=== PATIENT | female | born 1995 | race Caucasian/White ===

== ENCOUNTER 2023-01-14 06:35 | Observation (INO) | payer MEDICAID ==
[~2023-01-14] VITALS: Ht 152.4 cm; Wt 68.5 kg
== END 2023-01-14 10:00 | disposition home or self-care (01) ==
LOC: 8 EST LDRP 06:35
PROVIDERS: ADMIT Obstetrics & Gynecology; ATTEND Obstetrics & Gynecology
DX: O62.9 Abnormality of forces of labor, unspecified (principal); O26.893 Other specified pregnancy related conditions, third trimester; R10.9 Unspecified abdominal pain; Z3A.39 39 weeks gestation of pregnancy
CPT/HCPCS: 59025; 76818; 76805; G0378 ×2; 99281; G0379

== ENCOUNTER 2023-01-15 12:11 | Inpatient (IN) | payer MEDICAID ==
[~2023-01-15] VITALS: Ht 154.9 cm; Wt 62.6 kg
[~2023-01-15 12:11] MED LIST: EPHEDRINE SULFATE 50MG/ML VIAL ONE; LIDOCAINE 2%/EPINEPHRINE 1:200,000 20 ML VIAL INJ ONE
[2023-01-15] MEDS ORDERED: LACTATED RINGERS 1,000 ML IV SCH (13:45)
[2023-01-15] MEDS ORDERED: LIDOCAINE HCL 1% 20ML VIAL (Pyxis) INJ INFIL SCH (13:45)
[2023-01-15] MEDS ORDERED: CARBOPROST TROMETHAMINE 250 MCG/ML AMPUL IM PRN (13:45)
[2023-01-15] MEDS ORDERED: METHYLERGONOVINE MALEATE 0.2 MG/ML IM PRN (13:45)
[2023-01-15] MEDS: OXYTOCIN 30 UNITS/500ML NS PMX 500 ML IV SCH (14:50)
[2023-01-15 15:25] LABS: CLARITY URINE CLEAR (CLEAR); COLOR URINE DARK YELLOW (YELLOW); KETONES URINE 2+ (NEGATIVE); LEUKOCYTE ESTERASE URINE TRACE (NEGATIVE); NITRITE URINE NEGATIVE (NEGATIVE); OCCULT BLOOD URINE NEGATIVE (NEGATIVE); PH URINE 6.5 (4.5-8.0); PROTEIN URINE TRACE (NEGATIVE); SPECIFIC GRAVITY URINE 1.023 (1.005-1.030)
[2023-01-15 15:37] LABS: *AMPHETAMINES SCREEN URINE NEGATIVE (NEGATIVE); *BARBITURATES SCREEN URINE NEGATIVE (NEGATIVE); *BENZODIAZEPINES SCREEN URINE NEGATIVE (NEGATIVE); *COCAINE SCREEN URINE NEGATIVE (NEGATIVE); CANNABINOID URINE SCREEN NEGATIVE (NEGATIVE); METHADONE URINE SCREEN NEGATIVE (NEGATIVE); OPIATES URINE SCREEN NEGATIVE (NEGATIVE); PHENCYCLIDINE URINE SCREEN NEGATIVE (NEGATIVE)
[2023-01-15 16:02] LABS: HEPATITIS B SURFACE ANTIGEN NEGATIVE
[2023-01-15] MEDS: LACTATED RINGERS 1,000 ML IV SCH ×3 (20:50→22:53)
[2023-01-15] MEDS ORDERED: ROPIVACAINE HCL/PF EPIDURAL 200 ML EPI ONE (21:53)
[2023-01-15] MEDS ORDERED: ROPIVACAINE HCL/PF EPIDURAL 200 ML EPI SCH (22:00)
[2023-01-15 22:16] LABS: BASOPHILS % 0.3 % (0.0-2.0); HEMATOCRIT. 35.5 % (36.0-48.0); HEMOGLOBIN. 12.2 g/dL (12.0-16.0); LYMPHOCYTES % 8.6 % (20.0-50.0); MEAN CORPUSCULAR HEMOGLOBIN 30.3 pg (28.0-32.0); MEAN CORPUSCULAR VOLUME 88.1 fL (81.0-99.0); MEAN PLATELET VOLUME 8.3 fl (7.4-10.4); MONOCYTES % 4.2 % (2.0-8.0); NEUTROPHILS % 86.9 % (40.0-76.0); PLATELET 207 x1000/uL (130-400); RED BLOOD CELL COUNT 4.03 mill/uL (4.2-5.4); RED CELL DISTRIBUTION WIDTH 12.3 % (11.6-14.6)
[2023-01-15 22:29] LABS: INR 0.9; PARTIAL THROMBOPLASTIN TIME 26.7 sec (23.4-31.0); PROTHROMBIN TIME 10.1 sec (9.6-11.0)
[2023-01-16] MEDS ORDERED: METHYLERGONOVINE MALEATE 0.2 MG/ML IM PRN (07:00)
[2023-01-16] MEDS ORDERED: OXYTOCIN 30 UNITS/500ML NS PMX 500 ML IV SCH (07:00)
[2023-01-16] MEDS ORDERED: GLYCERIN/WITCH HAZEL LEAF MEDICATED PAD TOP PRN (07:00)
[2023-01-16] MEDS ORDERED: LANOLIN OINT 7GM TUBE TOP PRN (07:00)
[2023-01-16] MEDS ORDERED: DIPHENHYDRAMINE 25MG CAPSULE PO PRN (07:00)
[2023-01-16] MEDS ORDERED: RHO(D) IMMUNE GLOBULIN 300 MCG/SYR IM PRN (07:00)
[2023-01-16] MEDS ORDERED: HEMORRHOIDAL SUPP PR PRN (07:00)
[2023-01-16] MEDS ORDERED: IBUPROFEN 400MG TABLET PO PRN (07:00)
[2023-01-16] MEDS ORDERED: BENZOCAINE/LANOLIN/ALOE VERA SPRAY TOP PRN (07:00)
[2023-01-16] MEDS ORDERED: ACETAMINOPHEN WITH CODEINE 300/30MG TABLET PO PRN (07:00)
[2023-01-16] MEDS: OXYTOCIN 30 UNITS/500ML NS PMX 500 ML IV SCH (07:07)
[2023-01-16 09:15] VITALS: BP 93/50; PULSE 79; RESP 18; TEMP 98.8; O2SAT 100
[2023-01-16] MEDS: PRENATAL VIT/FE FUMARATE/FA TABLET PO SCH (10:02)
[2023-01-16] MEDS: MAGNESIUM/ALUMINUM HYDROXIDE/SIMETHICONE 30ML UDC PO SCH ×3 (10:02→21:12)
[2023-01-16] MEDS: IBUPROFEN 800MG TABLET PO PRN (10:03)
[2023-01-16 10:20] VITALS: BP 94/47; PULSE 89; RESP 18; TEMP 97.9
[2023-01-16 14:00] VITALS: BP 104/49; PULSE 76; RESP 18; TEMP 98.5
[2023-01-16 16:00] VITALS: BP 117/70; PULSE 82; RESP 18; TEMP 98
[2023-01-16 19:30] VITALS: BP 101/65; PULSE 84; RESP 20; TEMP 98; O2SAT 96
[2023-01-16] MEDS: DOCUSATE SODIUM 100MG CAPSULE PO SCH (21:12)
[2023-01-17 04:00] VITALS: BP 100/58; PULSE 72; RESP 18; TEMP 98
[2023-01-17 06:31] LABS: BASOPHILS % 0.4 % (0.0-2.0); EOSINOPHILS % 1.8 % (0.0-5.0); HEMATOCRIT. 31.9 % (36.0-48.0); HEMOGLOBIN. 11.3 g/dL (12.0-16.0); LYMPHOCYTES % 22.2 % (20.0-50.0); MEAN CORPUSCULAR HEMOGLOBIN 31.2 pg (28.0-32.0); MEAN PLATELET VOLUME 8.3 fl (7.4-10.4); MONOCYTES % 7.2 % (2.0-8.0); NEUTROPHILS % 68.4 % (40.0-76.0); PLATELET 176 x1000/uL (130-400); RED BLOOD CELL COUNT 3.63 mill/uL (4.2-5.4); RED CELL DISTRIBUTION WIDTH 12.4 % (11.6-14.6)
[2023-01-17] MEDS ORDERED: FERROUS SULFATE 325MG TABLET PO SCH (07:30)
[2023-01-17 07:40] VITALS: BP 98/56; PULSE 68; RESP 18; TEMP 98.2; O2SAT 97
[2023-01-17] MEDS: MAGNESIUM/ALUMINUM HYDROXIDE/SIMETHICONE 30ML UDC PO SCH ×2 (08:19→20:36)
[2023-01-17] MEDS: IBUPROFEN 800MG TABLET PO PRN (08:19)
[2023-01-17] MEDS: PRENATAL VIT/FE FUMARATE/FA TABLET PO SCH (08:19)
[2023-01-17 16:30] VITALS: BP 98/62; PULSE 66; RESP 18; TEMP 98.2
[2023-01-17 19:30] VITALS: BP 118/66; PULSE 70; RESP 20; TEMP 97.7; O2SAT 97
[2023-01-17] MEDS: DOCUSATE SODIUM 100MG CAPSULE PO SCH (20:36)
[2023-01-18 04:00] VITALS: BP 108/49; PULSE 61; RESP 18; TEMP 98.1
[2023-01-18] MEDS ORDERED: IBUP-2030 PO (06:40)
[2023-01-18 08:00] VITALS: BP 98/50; PULSE 64; RESP 18; TEMP 98.6; O2SAT 100
== END 2023-01-18 11:35 | disposition home or self-care (01) | DRG 560 ==
LOC: 8 EST LDRP 12:11 → OBSVTOIN 12:11 → 8EST 01-16 09:49
PROVIDERS: ADMIT Obstetrics & Gynecology; ATTEND Obstetrics & Gynecology
PROC: 10E0XZZ Delivery of Products of Conception, External Approach (ICD-10-PCS; principal; 2023-01-15)
PROC: 0KQM0ZZ Repair Perineum Muscle, Open Approach (ICD-10-PCS; 2023-01-15)
PROC: 3E0R3BZ Introduction of Anesthetic Agent into Spinal Canal, Percutaneous Approach (ICD-10-PCS; 2023-01-15)
PROC: 00HU33Z Insertion of Infusion Device into Spinal Canal, Percutaneous Approach (ICD-10-PCS; 2023-01-15)
DX: O99.02 Anemia complicating childbirth (principal); Z37.0 Single live birth; D62 Acute posthemorrhagic anemia; O70.1 Second degree perineal laceration during delivery; Z3A.39 39 weeks gestation of pregnancy; Z20.822 Contact with and (suspected) exposure to COVID-19
CPT/HCPCS: 36415; 80305; 81003; 85025; 86592; 86703; 86762; 86850; 86900; 87340; 87426; G0378; J2795; J3490; J7120; A4315; J2590

== ENCOUNTER 2024-10-13 14:41 | Emergency (ER) | payer MEDICAID ==
[~2024-10-13] VITALS: Ht 157.5 cm; Wt 68.0 kg
[~2024-10-13 14:41] MED LIST changes: -EPHEDRINE SULFATE 50MG/ML VIAL ONE; +IBUP-2030 PO; -LIDOCAINE 2%/EPINEPHRINE 1:200,000 20 ML VIAL INJ ONE
[2024-10-13 14:43] VITALS: O2SAT 97
[2024-10-13 15:11] LABS: CHLORIDE 106 mEq/L (98-107); POTASSIUM 3.7 mEq/L (3.5-5.1); SODIUM 139 mEq/L (136-145)
[2024-10-13 15:12] LABS: CALCIUM 9.2 mg/dL (8.7-10.4); CARBON DIOXIDE 21 mEq/L (21-32)
[2024-10-13] MEDS: SODIUM CHLORIDE 0.9% 500 ML IV ONE (15:14)
[2024-10-13 15:17] LABS: CREATININE 0.5 mg/dL (0.6-1.0); GLUCOSE 86 mg/dL (70-105); UREA NITROGEN BLOOD 6 mg/dL (9-23)
[2024-10-13 15:45] LABS: BASOPHILS % 0.4 % (0.0-2.0); EOSINOPHILS % 0.5 % (0.0-5.0); HEMATOCRIT. 36.7 % (36.0-48.0); HEMOGLOBIN. 12.1 g/dL (12.0-16.0); LYMPHOCYTES % 21.8 % (20.0-50.0); MEAN CORPUSCULAR HEMOGLOBIN 29.9 pg (28.0-32.0); MEAN CORPUSCULAR VOLUME 90.6 fL (81.0-99.0); MEAN PLATELET VOLUME 8.9 fl (7.4-10.4); MONOCYTES % 7.4 % (2.0-8.0); NEUTROPHILS % 69.9 % (40.0-76.0); PLATELET 237 x1000/uL (130-400); RED BLOOD CELL COUNT 4.05 mill/uL (4.2-5.4); RED CELL DISTRIBUTION WIDTH 12.8 % (11.6-14.6); WHITE BLOOD COUNT 11.3 x1000/uL (4.5-11.0)
[2024-10-13 15:54] LABS: INR 0.9; PARTIAL THROMBOPLASTIN TIME 24.2 sec (23.4-31.0); PROTHROMBIN TIME 9.8 sec (9.6-11.0)
[2024-10-13 16:06] LABS: CLARITY URINE CLOUDY (CLEAR); COLOR URINE YELLOW (YELLOW); GLUCOSE URINE NEGATIVE (NEGATIVE); KETONES URINE NEGATIVE (NEGATIVE); LEUKOCYTE ESTERASE URINE 2+ (NEGATIVE); NITRITE URINE NEGATIVE (NEGATIVE); OCCULT BLOOD URINE NEGATIVE (NEGATIVE); PH URINE 6.5 (4.5-8.0); PROTEIN URINE NEGATIVE (NEGATIVE); SPECIFIC GRAVITY URINE 1.014 (1.005-1.030)
[2024-10-13 17:23] VITALS: BP 131/89; PULSE 93; RESP 20; TEMP 36.9; O2SAT 100
[2024-10-13 17:53] LABS: AMORPHOUS SEDIMENT URINE 1+ /lpf; BACTERIA URINE 3+; RBC URINE 0-2 /hpf (0-2); SQUAMOUS EPITHELIAL CELL URINE 1+ /lpf (RARE/1+)
== END 2024-10-13 17:25 | disposition short-term general hospital (02) ==
LOC: ER 14:41
DX: O26.893 Other specified pregnancy related conditions, third trimester (principal); R10.9 Unspecified abdominal pain; Z3A.40 40 weeks gestation of pregnancy
CPT/HCPCS: 99285; 76805; 80048; 81003; 85025; 85610; 85730; 86850; 86900; 86901; 36415; J7040